=== PATIENT | female | born 1985 | race Caucasian/White ===

== ENCOUNTER 2017-09-13 14:05 | Observation (INO) | payer MEDICAID ==
[~2017-09-13] VITALS: Ht 157.5 cm; Wt 69.4 kg
[2017-09-13 14:20] VITALS: BP 98/54
[2017-09-13] MEDS ORDERED: calcium (15:11)
[2017-09-13] MEDS ORDERED: PREN-546 PO (15:11)
[2017-09-13] MEDS ORDERED: FERR-252 PO (15:11)
== END 2017-09-13 15:15 | disposition home or self-care (01) ==
LOC: MLD 14:05
PROVIDERS: ADMIT Obstetrics & Gynecology; ATTEND Obstetrics & Gynecology
DX: O46.93 Antepartum hemorrhage, unspecified, third trimester (principal); Z3A.30 30 weeks gestation of pregnancy
CPT/HCPCS: 81000; G0378

== ENCOUNTER 2018-09-21 20:43 | Emergency (ER) | payer MEDICAID ==
[~2018-09-21] VITALS: Ht 157.5 cm; Wt 63.5 kg
[~2018-09-21 20:43] MED LIST: FERR-252 PO; PREN-546 PO; calcium
[2018-09-21 20:46] VITALS: BP 118/75
--- NOTE | 2018-09-21 20:46 | NUR ---
TO BED # 08 AMBULATORY
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
[2018-09-21] MEDS ORDERED: ALBUTEROL SULFATE/IPRATROPIU 3 ML SOL IH ONE (21:20)
[2018-09-21] MEDS ORDERED: KETOROLAC 30 MG/ML VIAL IM ONE (21:20)
[2018-09-21] MEDS ORDERED: ACETAMIN/CODEINE 120/12MG-5ML 5 ML UDC PO ONE (21:20)
[2018-09-21 22:23] VITALS: BP 110/73
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
== END 2018-09-21 22:23 | disposition home or self-care (01) ==
LOC: MED 20:43
DX: J20.9 Acute bronchitis, unspecified (principal); H66.92 Otitis media, unspecified, left ear; Z79.899 Other long term (current) drug therapy
CPT/HCPCS: 71045; 94640; 94760; 96372; 99283; J1885; J7620

== ENCOUNTER 2020-04-02 10:32 | Emergency (ER) | payer MEDICAID ==
[~2020-04-02] VITALS: Ht 160 cm; Wt 65.4 kg
[2020-04-02 10:37] VITALS: BP 114/72
--- NOTE | 2020-04-02 10:45 | NUR ---
Patient ambulated to bed 4. RN evaluating patient at bedside.
--- NOTE | 2020-04-02 10:58 | NUR ---
Dr. Carr is evaluating the patient at bedside.
[2020-04-02] MEDS ORDERED: IBUPROFEN 400 MG TAB PO ONE (11:05)
--- NOTE | 2020-04-02 11:09 | NUR ---
XRAY AT BEDSIDE
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
[2020-04-02 11:40] VITALS: BP 114/72
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
== END 2020-04-02 11:40 | disposition home or self-care (01) ==
LOC: MED 10:32
DX: S40.022A Contusion of left upper arm, initial encounter (principal); R45.6 Violent behavior; Z79.899 Other long term (current) drug therapy; Z98.890 Other specified postprocedural states; Y04.2XXA Assault by strike against or bumped into by another person, initial encounter; Y93.89 Activity, other specified; Y92.89 Other specified places as the place of occurrence of the external cause; Y99.8 Other external cause status
CPT/HCPCS: 73060; 99283